=== PATIENT | male | born 1945 | race Caucasian/White ===

== ENCOUNTER 2024-04-29 13:12 | Outpatient (CLI) | payer MEDICARE, SELFPAY ==
--- NOTE | ~2024-04-29 | PE_ITS ---
EXAMINATION: PET_PETPSMAST_PT DATE: 04/29/2024 15:19 INDICATION: Prostate cancer TECHNIQUE: 6.304 mCi of Illucix [id number]) was administered i.v. Low dose computed eloy graphy (CT) images were acquired from the base of the brain to the base of the brain to the proximal thighs for attenuation correction and anatomic localization. Positron emission tomography (PET) image s were acquired in the same distribution beginning 82 minutes after injection. Images including fused PET/CT images were reconstructed in axial, coronal, and sagittal planes. Automated exposure control technique was employed. The dose-length product was 772.70mGy-cm. COMPARISON: None FINDINGS: Head/neck: Typical pattern of symmetric physiologic increased activity in the lacrimal, parotid and submandibula r glands as well as along the mucosa of the nasal and oral cavities, pharynx and hypopharynx. Ventric uloperitoneal shunt extending through a right parietal jackie hole and into the posterior horn of the r ight lateral ventricle with proximal tip anteriorly along the septum pellucidum. No pathologically en larged cervical lymphadenopathy or suspicious foci of increased uptake in the visualized head or neck . Chest: Small calcified right apical nodule consistent with old granulomatous disease. No suspicious pulmonar y nodules, pneumonia, pulmonary edema or pleural effusion. Mild cardiomegaly. Atherosclerotic coronar y artery calcification and aortic valve calcific lesion. Postoperative change of prior median sternot merary and coronary artery bypass grafting. No pericardial effusion. No pathologically enlarged or PSA m ay avid thoracic lymphadenopathy. Abdomen/pelvis/proximal thighs: Physiologic renal accumulation and excretion of activity in the kidneys, bladder and along portions o f ureters. Prostatomegaly with approximately 1.5 cm focus of the SMA uptake in the posterior gland wh ich is without correlate on CT imaging but with maximal SUV of 19.4 consistent with primary prostate cancer. Photopenic defect associated with a 2 cm low-attenuation right renal cyst. There are couple m asslike regions of relatively increased PSA may uptake in segment 7 of the liver, the more anterior m easuring approximately 2.5 cm with maximal SUV of 6.1 and the more posterior measuring approximately 3 cm with maximal SUV of 5.7. This relative to the surrounding liver with maximal velocity of 4.4. Th ere is no radiographic correlate on the CT imaging. Gallbladder is nonvisualized and likely surgicall y absent. The pancreas and bilateral adrenal glands are normal. Moderate uptake scattered throughout the bowels with typical duodenal and proximal jejunal predominance and without radiologic correlate, also likely physiologic. The distal tip of the ventriculoperitoneal shunt is positioned in the right deep pelvis. No other abnormal foci of increased uptake or pathologically enlarged lymphadenopathy in the abdomen, pelvis or proximal thighs. Musculoskeletal: No suspicious lytic, blastic or this may avid bone lesions. IMPRESSION: 1. Small region of prominent increased uptake at the posterior aspect of the enlarged prostate consis tent with likely reported primary prostate cancer. 2. A couple 2.5-3 cm masslike regions of mild increased uptake in segment 7 of the liver which is wit hout correlate on CT imaging. The degree of uptake is significantly lower than in the prostatic lesio n however is nonetheless still concerning for metastatic disease. Would recommend further evaluation with pre and postcontrast MRI or CT. No other lesions suspicious for metastatic disease. Reviewed, dictated and finalized at location A. IMPRESSION: 1. Small region of prominent increased uptake at the posterior aspect of the en larged prostate consistent with likely re
== END 2024-04-29 13:13 | disposition home or self-care (01) ==
PROVIDERS: Visit Provider Urology
DX: C61 Malignant neoplasm of prostate (principal); R16.0 Hepatomegaly, not elsewhere classified
CPT/HCPCS: 78815; A9596